=== PATIENT | male | born 1970 | race African-American/Black ===

== ENCOUNTER 2019-02-25 18:10 | Emergency (ER) | payer OTHER ==
[~2019-02-25] VITALS: Ht 185.4 cm; Wt 145.5 kg
[2019-02-25 18:20] VITALS: TEMP 99.3
[2019-02-25] MEDS ORDERED: VITAMIN D3400 I1 (20:20)
[2019-02-25] MEDS ORDERED: NORVASC 10MG10 MG PO (20:20)
[2019-02-25] MEDS ORDERED: LOPID 600M600 MG/TAB PO (20:20)
[2019-02-25] MEDS ORDERED: MAGNESIUM CHELA27 MG (20:20)
[2019-02-25] MEDS ORDERED: NORCO 325 MG-51 TAB PO (20:24)
[2019-02-25 20:33] VITALS: BP 131/88; PULSE 89
== END 2019-02-25 20:37 | disposition home or self-care (01) ==
LOC: COL.ER 18:10
DX: M25.512 Pain in left shoulder (principal)

== ENCOUNTER 2021-10-06 08:22 | Day surgery (SDC) | payer OTHER ==
[~2021-10-06] VITALS: Ht 185.4 cm; Wt 149.5 kg
[~2021-10-06 08:22] MED LIST: LOPID 600M600 MG/TAB PO; MAGNESIUM CHELA27 MG; NORCO 325 MG-51 TAB PO; NORVASC 10MG10 MG PO; VITAMIN D3400 I1
[2021-10-06 08:31] VITALS: BP 168/95; PULSE 85; TEMP 98
[2021-10-06] MEDS ORDERED: ZOLOFT 100MG100 MG PO (08:35)
[2021-10-06] MEDS ORDERED: BUSPAR10 MG PO (08:36)
[2021-10-06 09:35] VITALS: BP 168/76; PULSE 76; TEMP 97.6
--- NOTE | 2021-10-06 09:35 | NUR ---
Patient arrived from endo suite on a cart. He is alert and oriented x3. The patient was able to ambulate from the cart to the chair without difficulty. Gait is steady. Vitals obtained. Report obtained from YSABEL Eddy. The patient requested ice water and a warm muffin. The patient asked the RN to get his phone from his jacket pocket to call his . Warm blanket provided. Call mckay is within reach.
[2021-10-06 09:50] VITALS: BP 128/81; PULSE 77
--- NOTE | 2021-10-06 09:50 | NUR ---
Patient is eating his warm muffin and states that it is "really quite good". Vitals obtained. Denies neusea. No vomiting. The patient states his just parked and is on her way up. Call mckay is within reach. Another muffin provided to take home.
[2021-10-06 10:05] VITALS: BP 122/76; PULSE 76
--- NOTE | 2021-10-06 10:05 | NUR ---
The DR is in to speak with the patient.
--- NOTE | 2021-10-06 10:05 | NUR ---
Vitals obtained. The patient expressed desire to be dishcarged. Port-a-cath was de-accessed at this time. Hub was scrubbed with alcohol swab prior to flush, then heprin flush was administered. Bandaid applied. No bleeding noted. Patient denied discomfort. Patient was then assisted with ambulating to the bathroom, using a steady gait. Then back to his chair. Call mckay is at bedside, within reach.
--- NOTE | 2021-10-06 10:20 | NUR ---
Discharge instructions and educational material was reviewed with the patient and his . Both verbalized understanding and the patient signed the related paperwork. The patient and his denied having any questions or concerns. The patient denied needing any assitance changing into his personal clothes.
--- NOTE | 2021-10-06 10:25 | NUR ---
Additional information provided about low-fiber diet from . The patient signed a copy of the last page, which was placed in chart.
--- NOTE | 2021-10-06 10:30 | NUR ---
The patient was escorted out via wheelchair to the patient entrence by YSABEL Ovalle. His has the discharge packet and personal belongings. The patient was transferred into the care of his , who is present to drive.
== END 2021-10-06 10:35 | disposition home or self-care (01) ==
LOC: SDCO 08:22
DX: C18.7 Malignant neoplasm of sigmoid colon (principal); K62.1 Rectal polyp; D63.0 Anemia in neoplastic disease; E78.5 Hyperlipidemia, unspecified; I10 Essential (primary) hypertension; F32.9 Major depressive disorder, single episode, unspecified; F43.10 Post-traumatic stress disorder, unspecified; G47.33 Obstructive sleep apnea (adult) (pediatric); F41.9 Anxiety disorder, unspecified; M19.90 Unspecified osteoarthritis, unspecified site; Z79.82 Long term (current) use of aspirin; Z79.899 Other long term (current) drug therapy
CPT/HCPCS: J2704; J7030